=== PATIENT | female | born 1955 | race Two or more races ===

== ENCOUNTER 2024-10-25 12:11 | Emergency (ER) | payer MEDICAID, SELFPAY ==
[2024-10-25 12:12] VITALS: BMI 22.8
--- NOTE | 2024-10-25 12:20 | PC.NURSE ---
PT SEEN SLIDING TO FLOOR (SLOWLY WHILE HOLDING ONTO WHEELCHAIR) AND LAYING SELF ON FLOOR. WOULD NOT STAND AND 2 PERSON LIFT BACK TO WHEELCHAIR
[2024-10-25 12:25] VITALS: BP 154/92; PULSE 74; RESP 22; TEMP 36.4; O2SAT 100
--- NOTE | 2024-10-25 12:56 | EKG_ITS ---
[facility] Test Date: 2024-10-25 Pat Name: KIARA NAIR Department: Room: - Gender: Female Dial Mounter: : 1955 Requested By: Arvin Cuenca Order Number: [id number] Reading MD: Arvin Cuenca Measurements Intervals [place] Rate: 63 P: 50 KS: 175 QRS: 6 QRSD: 76 T: 39 QT: 416 QTc: 426 Interpretive Statements SINUS RHYTHM LOW QRS VOLTAGE IN PRECORDIAL LEADS [QRS DEFLECTION < 1.0 mV IN CHEST LEADS] Compared to ECG 06/19/2023 23:20:15 No significant changes /store/S0/[id number]
--- NOTE | 2024-10-25 12:57 | XR_ITS ---
Examination: CT abdomen with intravenous contrast CT pelvis with intravenous contrast 2-D coronal reconstructions 2-D sagittal reconstructions Date and time of exam:October 25, 2024, 1448 hrs. Comparison February 25, 2024 Indications: Onset abdominal pain vomiting and diarrhea today. CTDI: vol (mGy) 6.56 DLP: (mGycm) 328 Technique: Multiple axial sections of the abdomen and pelvis have been obtained. 64 slice high-resolution scanner used. 3 mm axial sections have been obtained, post intravenous injection 60 cc [id number] 2-D sagittal, coronal reconstructions obtained. Low dose protocols were performed. One or more of the following dose reduction techniques were used; automated exposure control, adjustment of the mA and/or KV according to patient size, use of iterative reconstruction technique. Findings: Fatty infiltration throughout the liver. No gallstones. Common bile duct 7 mm no stones No pancreatic splenic or adrenal mass. No renal or ureteral calculi, no hydronephrosis Abdominal aortic calcification. No bowel obstruction. No pericecal inflammatory change. Abundant stool in the rectum with mild thickening the rectal wall including axial image 2:15 Minimal thickening of urinary bladder wall Impression: Common bile duct 7 mm no definite stones, consider hepatobiliary sonography follow-up No renal or ureteral calculi, no hydronephrosis No CT findings of appendicitis. No diverticulitis. Large amounts of stool throughout the entire colon, thickening of the rectal wall, differential would include proctitis, early rectal tumor not excluded, recommend elective colonoscopy follow-up Mild cystitis pattern
--- NOTE | 2024-10-25 12:59 | PD.EDABDPN ---
ED Abdominal Pain RME/HPI General Chief Complaint: Abdominal Pain Stated complaint: ABD PAIN SINCE MIDNIGHT Time seen by provider: 10/25/24 12:40 Arrival date/time: 10/25/24 12:11 RME / HPI RME / HPI narrative: 69-year-old female patient with significant history of hypertension diabetes mellitus, came in for evaluation regarding abdominal pain. Patient woke up with abdominal pain since 1 AM today associated with vomiting and loose stool. Patient has been constipated last 3 days ago. Denies any blood in the stool denies any fever patient is crying due to a lot of pain. No medication was given prior to arrival. Patient was seen in the clinic and was sent to us to rule out small bowel obstruction Related Data Home Medications ?Medication ?Instructions ?Recorded ?Confirmed atorvastatin 10 mg tablet 10 mg PO HS 10/17/23 10/17/23 buspirone 5 mg tablet 5 mg PO BID 10/17/23 10/17/23 celecoxib 100 mg capsule (Celebrex) 100 mg PO QDAY 10/17/23 10/17/23 empagliflozin 25 mg tablet 25 mg PO QDAY 10/17/23 10/17/23 (Jardiance) empagliflozin 25 mg tablet 25 mg PO QDAY 10/17/23 10/17/23 (Jardiance) gabapentin 100 mg capsule 100 mg PO TID PRN Anxiety 10/17/23 10/17/23 levofloxacin 750 mg tablet 750 mg PO QDAY 10/17/23 10/17/23 Previous Rx's ?Medication ?Instructions ?Recorded polyethylene glycol 3350 17 gram 17 g PO BID PRN constipation #30 ea 06/20/23 oral powder packet (HealthyLax) dicyclomine 20 mg tablet 20 mg PO QID PRN abdominal pain 10/03/23 #30 tabs peg 3350-electrolytes 236 240 ml PO Q10M #4,000 mL 10/25/24 gram-22.74 gram-6.74 gram-5.86 gram solution (Golytely) Allergies Allergy/AdvReac Type Severity Reaction Status Date / Time metformin Allergy Severe Difficulty Verified 10/25/24 12:14 Breathing naproxen Allergy Severe Abdominal Verified 10/25/24 12:14 Pain Review of Systems Review of Systems Narrative Review of Systems: Review of system reviewed and within normal limits except mentioned in HPI ED Exam Narrative Physical exam: VITAL SIGNS: Reviewed. GENERAL APPEARANCE: Alert and interactive, follows commands, no acute distress, HEAD AND FACE: Non-traumatic. ENT: PERRL, pink conjunctivitis, eyelid no trauma, Mucous membrane dry NECK: Supple, nontender, no nuchal rigidity. CHEST: No tenderness, no crepitus, no paradoxical movement, no retractions. LUNGS: Clear, well ventilated, symmetric, no rales, no wheezing, no ronchi, no stridor, good breath sounds bilaterally. HEART: Regular rate, regular rhythm, no murmur, no gallops. ABDOMEN: Soft, positive bowel sounds, nondistended, no guarding, diffuse tenderness, no rebound, no masses, RECTAL: Deferred. GENITAL: Deferred. NEUROLOGICAL: Gross motor function intact sensory function intact, Appropriate for age. MUSCULOSKELETAL: low back nontender, full range of motion. EXTREMITIES: Nontender, full range of motion. SKIN: Color pink, dry, no rash, no lacerations, no abrasions, no contusions. LYMPHATICS: Deferred. Course Quality Measures none Orders Category Date Time Status CT Screening NOW Care 10/25/24 12:57 Active EKG (ED ONLY) *Do not use* NOW Care 10/25/24 12:[address] abdomen pelvis w con Stat Exams 10/25/24 12:[address] head/brain wo con Stat Exams 10/25/24 13:40 Completed EKG (ED Only) Stat Exams 10/25/24 12:56 Draft CBC Stat Lab 10/25/24 13:08 Completed Comprehensive Metabolic Panel Stat Lab 10/25/24 13:08 Completed Lipase Stat Lab 10/25/24 13:08 Completed Partial Thromboplastin Time Stat Lab 10/25/24 13:08 Completed Prothrombin Time with INR Stat Lab 10/25/24 13:08 Completed Troponin I Stat Lab 10/25/24 13:08 Completed UA, C/S IF [Urinalysis, C/S if Indicated] Stat Lab 10/25/24 14:38 Completed Urine Culture Stat Lab 10/25/24 14:38 Received Magnesium Citrate Liqd [Citrate of Magnesia Liqd] Med 10/25/24 12:57 Discontinued 300 ml PO X1 ONE Magnesium Citrate Liqd [Citrate of Magnesia Liqd] Med 10/25/24 15:58 Discontinued 300 ml PO X1 ONE Morphine Inj Med 10/25/24 12:56 Discontinued 4 mg IVP X1 ONE Ondansetron Inj [Zofran Inj] Med 10/25/24 12:56 Discontinued 4 mg IVP X1 ONE Ringers Lactated 1000 ml [Lactated Ringers] 1,000 ml Med 10/25/24 12:57 Discontinued IV 999 mls/hr Vital Signs Vital signs: Vital Signs Temperature 97.5 F 10/25/24 12:25 Pulse Rate 74 10/25/24 12:25 Respiratory Rate 22 H 10/25/24 12:25 Blood Pressure 154/92 H 10/25/24 12:25 Pulse Oximetry (%) 100 10/25/24 12:25 Oxygen Delivery Method Room Air 10/25/24 12:25 Abdominal Pain MDM MDM Narrative MDM Narrative:: 69-year-old female patient with significant history of hypertension diabetes mellitus, came in for evaluation regarding abdominal pain. Patient woke up with abdominal pain since 1 AM today associated with vomiting and loose stool. Patient has been constipated last 3 days ago. Denies any blood in the stool denies any fever patient is crying due to a lot of pain. No medication was given prior to arrival. Patient was seen in the clinic and was sent to us to rule out small bowel obstruction Patient's laboratory workup all came back unremarkable including normal troponin. CMP unremarkable. Lipase normal urinalysis no UTI CT scan of the head came back with no acute pathology. CT scan of the abdomen pelvis showed Common bile duct 7 mm no definite stones, consider hepatobiliary sonography follow-up No renal or ureteral calculi, no hydronephrosis No CT findings of appendicitis. No diverticulitis. Large amounts of stool throughout the entire colon, thickening of the rectal wall, differential would include proctitis, early rectal tumor not excluded, recommend elective colonoscopy follow-up Mild cystitis pattern Patient was given IV fluids, mag citrate, significant problems with symptoms Results discussed with the family. EKG showed sinus rhythm, ventricular rate of 63 bpm, NJ interval of 175 MS, no ST segment elevation depression noted Patient data External records reviewed:: None Clinical information provided by:: patient and family Social determinants that could affect healthcare access:: none Patient has the following chronic illnesses:: Diabetes mellitus How is presenting disease/condition affected by chronic disease/condition?: exacerbated by Evaluation data The following diagnostics were reviewed and interpreted by me:: lab results, radiology exam(s) and EKG tracing(s) Lab and/or radiology exams considered but not ordered:: None Interpretation Summary: See results MDM Medications / Prescriptions Medications or Prescriptions considered but not ordered:: None Medication administrations:: Medication Administration History Discontinued Medications Lactated Ringer's (Lactated Ringers) 1,000 mls @ 999 mls/hr IV .Q1H1M ONE Stop: 10/25/24 13:57 Last Infusion: 10/25/24 14:39 Dose: Infused Documented By: Admin: 10/25/24 13:31 Dose: 999 mls/hr Documented By: MIKE Magnesium Citrate (Magnesium Citrate 300 Ml Btl) 300 ml PO X1 ONE Stop: 10/25/24 12:58 Last Admin: 10/25/24 13:19 Dose: Not Given Documented By: MIKE Non-Admin Reason: Cancelled by Provider Magnesium Citrate (Magnesium Citrate 300 Ml Btl) 300 ml PO X1 ONE Stop: 10/25/24 15:59 Morphine Sulfate (Morphine Sulf Inj 10 Mg/Ml Vial) 4 mg IVP X1 ONE Stop: 10/25/24 12:57 Last Admin: 10/25/24 13:39 Dose: Not Given Documented By: MIKE Non-Admin Reason: Change of Condition Ondansetron HCl (Ondansetron Inj 2 Mg/Ml Inj 2 Ml) 4 mg IVP X1 ONE; Protocol Stop: 10/25/24 12:57 Last Admin: 10/25/24 13:29 Dose: 4 mg Documented By: MIKE IV fluids for hydration, mag citrate Consultations Consultation(s) initiated? (list below): No Diagnosis Differential diagnosis abdominal pain: abdominal pain, constipation and small bowel obstruction Most likely diagnosis given after review of the tests above:: Abdominal pain, constipation Admission Indicated Admission indicated?: not indicated Explain why admission is indicated or not indicated:: Stable Admission Request Was there a request for admission?: No Disposition Plan Disposition Plan: Discharge Discharge Attestation Discharge Attestation: The patient and all family members were given an opportunity to ask questions and understood the discharge instructions. Discharge instructions specifically effects, indications for sooner follow up or return to the emergency department, and the expected course of current diagnosis. Patient condition: Stable Discharge Plan Plan Patient Disposition: HOME (Self Care) Discharge Disposition comment: Stable Prescriptions/Referrals Prescriptions/Med Rec: New peg 3350-electrolytes [Golytely] 236-22.74-6.74 -5.86 gram recon soln 240 ml PO Q10M Qty: 4000 0RF Rx Instructions: until fecal effluent is clear No Action buspirone 5 mg tablet 5 mg PO BID atorvastatin 10 mg tablet 10 mg PO HS Patient Comments: TAKE 1 TABLET BY MOUTH DAILY AT BEDTIME FOR 30 DAYS gabapentin 100 mg Capsule 100 mg PO TID PRN (Reason: Anxiety) levofloxacin 750 mg tablet 750 mg PO QDAY Patient Comments: TAKE 1 TABLET(750MG) BY MOUTH ONCE DAILY FOR 5 DAYS. Rx Instructions: for 5 days celecoxib [Celebrex] 100 mg Capsule 100 mg PO QDAY Jardiance 25 mg tablet 25 mg PO QDAY Jardiance 25 mg tablet 25 mg PO QDAY dicyclomine 20 mg tablet 20 mg PO QID PRN (Reason: abdominal pain) Qty: 30 0RF polyethylene glycol 3350 [HealthyLax] 17 gram powder in packet 17 g PO BID PRN (Reason: constipation) Qty: 30 0RF Referrals: Brandon Nieves PA-C [Primary Care Provider] - In 1 week Problem List Clinical Impression: Constipation, Small bowel obstruction Patient/Caregiver Discharge Instructions Discharge Activity: activity as tolerated Education Materials: Treating Constipation Additional Instructions: Thank you for the opportunity for serving you today. You are stable for discharged . You are advised to: Follow-up with your PCP in 1 to 2 days Return to ED for worsening of symptoms Increase oral fluids Take medication as prescribed Print Language: Malaysian Stand Alone Forms: Lina Award Info., Patient Portal Info Letter NITISH/PAUL[place] Supervising Physician [place] Supervising Physician: MD Jacek
--- NOTE | 2024-10-25 13:12 | PC.NURSE ---
PATIENT ARRIVED ED VIA PRIVATE VEHICLE. PATIENT WAS SENT BY PRIMARY CARE PROVIDER AT [facility] DUE TO PATIENT WITH SEVERE ABDOMINAL PAIN TIMES 1 DAY, PATIENT WITH VOMITING THIS MORNING AND DIARRHEA. PATIENT IN ROOM PLACED ON MONITOR, IV ESTABLISHED. EKG COMPLETED. PROVIDER IN ROOM TO ASSESS PATIENT. FAMILY REMAINS AT BEDSIDE. CALL LIGHT WITHIN REACH WILL CONTINUE TO MONITOR
[2024-10-25] MEDS: ONDANSETRON INJ 2 MG/ML INJ 2 ML 4 MG IVP (13:29)
[2024-10-25] MEDS: RINGERS LACTATED 1000 ML 1,000 ML 999 ML IV (13:31)
--- NOTE | 2024-10-25 13:40 | XR_ITS ---
Examination: CT brain head without contrast. 2-D sagittal coronal reconstructions Date and time of exam:25 1448 hrs. Indications: Altered mental status today. CTDI: vol (mGy):44.7. DLP: (mGycm):848. Technique: Multiple CT axial sections of the brain have been obtained, 5 mm slice thickness. Contrast has not been administered. 2-D sagittal, coronal reconstructions have been obtained Low dose protocols were performed. One or more of the following dose reduction techniques were used; automated exposure control, adjustment of the mA and/or KV according to patient size, use of iterative reconstruction technique. Findings: No significant ventricular enlargement. Intra-axial or extra-axial hemorrhage density is not seen. No mass effect or midline shift Basal cisterns are not remarkable. Fourth ventricle is midline. Cranial vault intact. Impression: Negative for acute hemorrhage, mass effect or midline shift
[2024-10-25 13:42] VITALS: BP 160/69; PULSE 63; RESP 16; O2SAT 99
--- NOTE | 2024-10-25 13:43 | PC.NURSE ---
PATIENT RESTING, HARD TO WAKE PATIENT UP, PROVIDER MADE AWARE. PATIENT ABLE TO ANSWER APPROPRIATE QUESTIONS. WILL HOLD OFF ON PAIN MEDICATION DUE TO PATIENT SLOW TO RESPOND TO VERBAL. REMAINS AT BEDSIDE. WILL CONTINUE TO MONITOR.
[2024-10-25 13:46] LABS: Alanine Aminotransferase 15 U/L (10-49); Albumin, Serum 4.1 gm/dL (3.4-4.8); Albumin/Globulin Ratio 1.8 (1.2-2.2); Alkaline Phosphatase 101 U/L (46-116); Anion Gap 7 (7-16); Aspartate Amino Transferase 17 U/L (0-34); BUN/Creatinine Ratio 17 Ratio (12-20); Bilirubin,Total 0.6 mg/dL (0.3-1.2); Blood Urea Nitrogen 10 mg/dL (9-23); Carbon Dioxide 25.7 mMol/L (20.0-31.0); Chloride 107 mMol/L (98-107); Creatinine (Component) 0.6 mg/dL (0.6-1.3); Estimated Creatinine Clearance 65.4 mL/min (>60); Globulin 2.3 gm/dL (2.3-3.5); Glucose 192 mg/dL (74-106); Lipase 33 U/L (12-53); Osmolality,Calculated 283 (275-295); Potassium 4.2 mMol/L (3.4-5.1); Sodium 140 mMol/L (136-145); Total Protein 6.4 gm/dL (5.7-8.2); eGFR > 60 See Note
[2024-10-25 13:47] LABS: Basophils # (Auto) 0.1 Thou/mm3 (0.0-0.2); Basophils % (Auto) 1 % (0-2.5); Eosinophils # (Auto) 0.1 Thou/mm3 (0.0-0.5); Eosinophils % (Auto) 2 % (0-10); Hematocrit 38.9 % (36.0-46.0); Hemoglobin 13.1 g/dL (12.0-16.0); Immature Granulocytes % (Auto) 0 % (0-0); Immature Granulocytes Auto 0.01 Thou/mm3 (0.00-0.00); Lymphocytes # (Auto) 2.5 Thou/mm3 (1.0-4.8); Lymphocytes % (Auto) 33 % (10-50); Mean Corpuscular HGB Conc 33.7 g/dl (31.0-37.0); Mean Corpuscular Hemoglobin 28.7 pg (25.0-35.0); Mean Corpuscular Volume 85 fL (80-100); Monocytes # (Auto) 0.8 Thou/mm3 (0.0-0.8); Monocytes % (Auto) 10 % (0-12); Neutrophils # (Auto) 4.1 Thou/mm3 (1.8-7.7); Neutrophils % (Auto) 54 % (37-80); Nucleated Red Blood Cell % 0 /100 WBC (0); Platelet Count 325 Thou/mm3 (140-440); RDW Standard Deviation 39.4 fL (36.4-46.3); Red Blood Count 4.57 Miln/mm3 (4.00-5.20); White Blood Count 7.6 Thou/mm3 (3.6-11.0)
[2024-10-25 13:54] LABS: Partial Thromboplastin Time 27.2 Seconds (22.0-36.0); Prothrombin Time 10.9 Seconds (9.0-12.2)
[2024-10-25 14:09] LABS: Troponin I < 0.002 ng/mL (0.0-0.045)
[2024-10-25 14:58] LABS: Collection Type, Urine Clean Catch; WBC,Urine 0 /hpf (0-5)
[2024-10-25 15:31] LABS: Bacteria,Urine 4+; Bilirubin,Urine Negative (Negative); Blood,Urine Negative (Negative); Color,Urine Colorless (Lt Yel-Yel); Glucose, Urine 3+ (Negative); Ketones,Urine Negative (Negative); Leukocyte Esterase,Urine Negative (Negative); Nitrite,Urine Negative (Negative); PH,Urine 7.5 (5.0-7.0); Protein,Urine Negative (Neg - Trace); RBC,Urine 1 /hpf (0-3); Specific Gravity,Urine 1.005 (1.001-1.035); Squamous Epithelial Cell,Urine < 1 /hpf (0-5); Urobilinogen,Urine Negative mg/dL (0.0-1.0)
[2024-10-25 15:36] LABS: Clarity,Urine Hazy (Clear/Hazy); Culture Indicated,Urine Yes
[2024-10-25 16:23] VITALS: BP 111/86; PULSE 62; RESP 20; O2SAT 96
[2024-10-25] MEDS: MAGNESIUM CITRATE 300 ML BTL PO (16:54)
== END 2024-10-25 17:05 | disposition home or self-care (01) ==
PROVIDERS: Nurse Practitioner Family; Emergency Provider Emergency Medicine; PCP Physician Assistant
DX: K59.00 Constipation, unspecified (principal); K56.609 Unspecified intestinal obstruction, unspecified as to partial versus complete obstruction; E11.9 Type 2 diabetes mellitus without complications; I10 Essential (primary) hypertension
CPT/HCPCS: 36415; 70450; 74177; 80053; 81001; 83690; 84484; 85025; 85610; 85730; 87086; 93005; 96361; 96374; 99285; A4649; J2405; J7120; Q9967; A9270

== ENCOUNTER 2024-12-06 09:59 | Emergency (ER) | payer MEDICAID, SELFPAY ==
[2024-12-06] VITALS (7 sets, daily range): BP systolic 134–186; BP diastolic 60–91; PULSE 61–98; RESP 14–22; TEMP 36.4–37; O2SAT 97–99; BMI 22.8
--- NOTE | 2024-12-06 11:00 | PC.NURSE ---
INCOMPLETE ANXIETY ASSESSMENT DONE AT THIS TIME; PT HAS EYES CLOSED, EQUAL CHEST RISE & FALL NOTED. PT REFUSING TO ANSWER QUESTIONS AT THIS TIME AND CONTINUES TO HAVE EYES CLOSED. PT RESPONDS TO PAIN APPROPRIATELY DURING STERNAL RUB.
--- NOTE | 2024-12-06 11:28 | EKG_ITS ---
[facility] (Formerly [facility])[3] Test Date: 2024-12-06 Pat Name: KIARA NAIR Department: Room: - Gender: Female Knotter Hand: : 1955 Requested By: Arvin Cuenca Order Number: [id number] Reading MD: Arvin Cuenca Measurements Intervals [place] Rate: 78 P: 59 MS: 155 QRS: 30 QRSD: 74 T: 51 QT: 379 QTc: 432 Interpretive Statements SINUS RHYTHM Compared to ECG 10/25/2024 13:16:11 No significant changes /store/S0/[id number]
--- NOTE | 2024-12-06 11:28 | XR_ITS ---
Examination: CT brain head without contrast. 2-D sagittal coronal reconstructions Date and time of exam:December 06, 2024 1247 hours INDICATIONS: Altered mental status today COMPARISON: October 25, 2024 CTDI: vol (mGy):46.3 DLP: (mGycm):818 Technique: Multiple CT axial sections of the brain have been obtained, 5 mm slice thickness. Contrast has not been administered. 2-D sagittal, coronal reconstructions have been obtained Low dose protocols were performed. One or more of the following dose reduction techniques were used; automated exposure control, adjustment of the mA and/or KV according to patient size, use of iterative reconstruction technique. Findings: No significant ventricular enlargement. Intra-axial or extra-axial hemorrhage density is not seen. No mass effect or midline shift Basal cisterns are not remarkable. Fourth ventricle is midline. Cranial vault intact. Impression: Negative for acute hemorrhage, mass effect or midline shift. Advised correlation follow up accordingly
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
[2024-12-06 12:24] LABS: Basophils # (Auto) 0.1 Thou/mm3 (0.0-0.2); Basophils % (Auto) 1 % (0-2.5); Eosinophils # (Auto) 0.0 Thou/mm3 (0.0-0.5); Eosinophils % (Auto) 1 % (0-10); Hematocrit 41.0 % (36.0-46.0); Hemoglobin 13.7 g/dL (12.0-16.0); Immature Granulocytes Auto 0.01 Thou/mm3 (0.00-0.00); Lymphocytes # (Auto) 1.5 Thou/mm3 (1.0-4.8); Lymphocytes % (Auto) 24 % (10-50); Mean Corpuscular HGB Conc 33.4 g/dl (31.0-37.0); Mean Corpuscular Hemoglobin 28.5 pg (25.0-35.0); Mean Corpuscular Volume 85 fL (80-100); Monocytes # (Auto) 0.5 Thou/mm3 (0.0-0.8); Monocytes % (Auto) 9 % (0-12); Neutrophils # (Auto) 4.1 Thou/mm3 (1.8-7.7); Neutrophils % (Auto) 66 % (37-80); Nucleated Red Blood Cell # 0.00 Thou/mm3 (0.00-0.00); Nucleated Red Blood Cell % 0 /100 WBC (0); Platelet Count 269 Thou/mm3 (140-440); RDW Standard Deviation 39.7 fL (36.4-46.3); Red Blood Count 4.81 Miln/mm3 (4.00-5.20); White Blood Count 6.2 Thou/mm3 (3.6-11.0)
[2024-12-06 12:59] LABS: Alanine Aminotransferase 18 U/L (10-49); Albumin, Serum 4.5 gm/dL (3.4-4.8); Albumin/Globulin Ratio 2.0 (1.2-2.2); Alcohol, Blood Medical < 3.0 mg/dL (0-10.0); Alkaline Phosphatase 103 U/L (46-116); Anion Gap 9 (7-16); Aspartate Amino Transferase 20 U/L (0-34); BUN/Creatinine Ratio 16 Ratio (12-20); Bilirubin,Total 0.6 mg/dL (0.3-1.2); Blood Urea Nitrogen 11 mg/dL (9-23); Calcium 9.2 mg/dL (8.3-10.6); Calcium (Corrected) 9.2 mg/dL (8.5-10.1); Carbon Dioxide 24.1 mMol/L (20.0-31.0); Chloride 109 mMol/L (98-107); Creatinine (Component) 0.7 mg/dL (0.6-1.3); Estimated Creatinine Clearance 56.0 mL/min (>60); Globulin 2.3 gm/dL (2.3-3.5); Glucose 182 mg/dL (74-106); Osmolality,Calculated 287 (275-295); Potassium 3.8 mMol/L (3.4-5.1); Sodium 142 mMol/L (136-145); Total Protein 6.8 gm/dL (5.7-8.2); eGFR > 60 See Note
[2024-12-06] MEDS: DIAZEPAM INJ 5 MG/ML VIAL 2 ML IM (13:18)
--- NOTE | 2024-12-06 13:21 | PC.NURSE ---
PT CONTINUES TO KEEP EYES CLOSED; PT STILL NOT ANSWERING QUESTIONS. EQUAL CHEST RISE & FALL NOTED.
--- NOTE | 2024-12-06 16:30 | XR_ITS ---
Examination: AP chest single view TECHNIQUE: AP portable sitting chest single view COMPARISON: 01/16/2023 INDICATION: Chest pain today. FINDINGS: Mild prominence left ventricle No pneumonia or pulmonary edema. Significant osteopenia IMPRESSION: No active disease.
[2024-12-06] MEDS: ACETAMINOPHEN 500 MG TABLET 1000 MG PO (16:52)
--- NOTE | 2024-12-06 16:55 | PC.NURSE ---
PT NOW ANSWERING QUESTIONS AT THIS TIME; PT DENIES ANY ANXIETY NOW.
[2024-12-06 17:02] LABS: Collection Type, Urine Clean Catch; WBC,Urine 0 /hpf (0-5)
[2024-12-06 17:16] LABS: Bilirubin,Urine Negative (Negative); Blood,Urine 1+ (Negative); Clarity,Urine Clear (Clear/Hazy); Color,Urine Lt-Yellow (Lt Yel-Yel); Glucose, Urine 4+ (Negative); Ketones,Urine 1+ (Negative); Leukocyte Esterase,Urine Negative (Negative); Nitrite,Urine Negative (Negative); PH,Urine 6.0 (5.0-7.0); Protein,Urine Negative (Neg - Trace); RBC,Urine 32 /hpf (0-3); Specific Gravity,Urine 1.037 (1.001-1.035); Squamous Epithelial Cell,Urine 1 /hpf (0-5); Urobilinogen,Urine Negative mg/dL (0.0-1.0)
[2024-12-06 17:22] LABS: Amphetamine/Methamp Scrn,U Negative (Negative); Barbiturate Screen,Urine Negative (Negative); Benzodiazepines Screen,Urine Positive (Negative); Benzoylecgonine Screen, Ur Negative (Negative); Fentanyl Screen,Urine Negative (Negative); Opiate Screen,Urine Negative (Negative); THC Screen,Urine Negative (Negative)
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
[2024-12-06 17:44] LABS: Troponin I < 0.020 ng/mL (0.0-0.045)
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
== END 2024-12-06 19:49 | disposition home or self-care (01) ==
PROVIDERS: Nurse Practitioner Family; Emergency Provider Emergency Medicine
DX: F41.9 Anxiety disorder, unspecified (principal); F91.9 Conduct disorder, unspecified; R07.9 Chest pain, unspecified; R41.82 Altered mental status, unspecified
CPT/HCPCS: 36415; 70450; 71045; 80053; 80307; 80320; 81001; 84484; 85025; 93005; 99283; J3360; A9270; G0480